=== PATIENT | male | born 1995 | race Caucasian/White ===

== ENCOUNTER 2023-08-24 19:39 | Emergency (ER) | payer OTHER, SELFPAY ==
[2023-08-24 20:05] LABS: % Basophils 0.4 % (0-2); % Eosinophils 1.2 % (0-6); % Immature Granulocytes 0.3 % (0-0.5); % Lymphocytes 15.5 % (20.5-51.1); % Monocytes 10.4 % (1.7-9.3); % Neutrophils 72.2 % (42.2-75.2); Absolute Basophils 0.1 10^3/uL (0-0.2); Absolute Eosinophils 0.1 10^3/uL (0-0.7); Absolute Lymphocytes 1.8 10^3/uL (1.2-3.4); Absolute Monocytes 1.2 10^3/uL (0.1-0.6); Absolute Neutrophils 8.4 10^3/uL (1.4-6.5); Hematocrit 42.6 % (39.0-52.0); Hemoglobin 15.9 g/dL (13.0-18.0); Mean Corp Hgb Conc. 37.3 g/dL (33.0-37.0); Mean Corpuscular Hgb 30.9 pg (27.0-31.0); Mean Corpuscular Volume 82.9 fL (80.0-94.0); Mean Platelet Volume 11.1 fL (7.4-10.4); Nucleated Red Blood Cells % 0 % (-); Platelet Count 200 10^3/uL (130-400); Red Blood Cell Count 5.14 10^6/uL (4.70-6.10); Red Cell Dist. Width 12.7 % (11.5-14.5); White Blood Cell Count 11.7 10^3/uL (4.8-10.8)
[2023-08-24 20:21] LABS: ALT (SGPT) 50 U/L (0-50); AST (SGOT) 36 U/L (17-59); Albumin 4.4 g/dl (3.5-5.0); Alkaline Phosphatase 54 U/L (38-126); Blood Urea Nitrogen 12 mg/dl (9-20); Calcium 10.1 mg/dl (8.4-10.2); Carbon Dioxide 25 mmol/L (22-30); Chloride 94 mmol/L (98-107); Glucose 104 mg/dl (70-99); Potassium 4.1 mmol/L (3.5-5.1); Sodium 130 mmol/L (135-145); Total Bilirubin 0.9 mg/dl (0.2-1.3); Total Protein 7.3 g/dl (6.3-8.2); eGFR > 60.00
--- NOTE | 2023-08-24 21:58 | ED.GENMED ---
History of Present Illness
<Iqra Child PA-C - Last Filed: 08/25/23 00:34>
General
Chief Complaint: Skin Problem
Source: patient
Exam Limitations: none
Time Seen by Provider: 08/24/23 21:36
Nursing documentation reviewed up to this point in time: agreed with
Travel History
Have you had any contact with someone who has COVID-19?: No
Do you have any symptoms of coronavirus? Fever > 100 degrees, chills, cough, shortness of breath, sore throat, loss of taste or smell, muscle aches, or headache?: No
History of Present Illness
History of Present Illness:
This is a 28-year-old male with no past medical history presenting today with an abscess on the right thigh. Patient reports that a few days ago, the beginning the weakness is small pimple on his right leg. He had no pain at the time and thought
nothing of it. As the days progressed, the abscess grew in size and he started to have a lot of pain and difficulty walking due to the pain. He is also states is very painful to touch. Patient denies any fevers or chills, any allergies to
antibiotics. Patient denies nausea or vomiting, possible insect bite. Patient is never had anything like this before.
Past History
<Iqra Child PA-C - Last Filed: 08/25/23 00:34>
Past History
ED Past Medical History: Psychiatric
ED Past Surgical History: None
Social History
Tobacco: Non-smoker
Alcohol: None
Drug: Marijuana, IVDA and Other (Hallucinogenic mushrooms)
Personal: Single
Living: with family
Review of Systems
<Iqra Child PA-C - Last Filed: 08/25/23 00:34>
Review of Systems
All Other Systems: ROS reviewed and negative except as documented in HPI and ROS
Phy Exam
<Iqra Child PA-C - Last Filed: 08/25/23 00:34>
Physical Exam
Physical Exam:
General: Patient is well-appearing in no acute distress. Patient is mildly anxious
Skin: There is a 3 cm abscess with surrounding area of erythema and induration located on the anterior surface of the right thigh.
Course
<Iqra Child PA-C - Last Filed: 08/25/23 00:34>
Orders/Labs/Results
Orders:
Orders
08/24/23 19:58
CBC/With Diff [Complete Blood Count/With Diff] Urgent
CMP [Comprehensive Metabolic Panel] Urgent
08/24/23 23:13
Ibuprofen [Motrin] 600 mg PO NOW STA
Abnormal Lab Results
08/24/23
19:58
WBC 11.7 H 10^3/uL
(4.8-10.8)
MCHC 37.3 H g/dL
(33.0-37.0)
MPV 11.1 H fL
(7.4-10.4)
Absolute Neuts (auto) 8.4 H 10^3/uL
(1.4-6.5)
Absolute Monos (auto) 1.2 H 10^3/uL
(0.1-0.6)
Lymphocytes % 15.5 L %
(20.5-51.1)
Monocytes % 10.4 H %
(1.7-9.3)
Sodium 130 L mmol/L
(135-145)
Chloride 94 L mmol/L
(98-107)
Glucose 104 H mg/dl
(70-99)
08/24/23 19:58
08/24/23 19:58
Vital Signs
Initial and Last Documented VS:
Initial Vital Signs
Temp Pulse Resp Pulse Ox
98.2 F 76 17 98
08/24/23 19:48 08/24/23 19:48 08/24/23 19:48 08/24/23 19:48
Last Documented Vital Signs
Temp Pulse Resp Pulse Ox
98.2 F 76 17 98
08/24/23 19:48 08/24/23 19:48 08/24/23 19:48 08/24/23 19:48
<Adnrew Osborn, DO - Last Filed: 08/24/23 23:20>
Orders/Labs/Results
Orders:
Orders
08/24/23 19:58
CBC/With Diff [Complete Blood Count/With Diff] Urgent
CMP [Comprehensive Metabolic Panel] Urgent
08/24/23 23:13
Ibuprofen [Motrin] 600 mg PO NOW STA
Abnormal Lab Results
08/24/23
19:58
WBC 11.7 H 10^3/uL
(4.8-10.8)
MCHC 37.3 H g/dL
(33.0-37.0)
MPV 11.1 H fL
(7.4-10.4)
Absolute Neuts (auto) 8.4 H 10^3/uL
(1.4-6.5)
Absolute Monos (auto) 1.2 H 10^3/uL
(0.1-0.6)
Lymphocytes % 15.5 L %
(20.5-51.1)
Monocytes % 10.4 H %
(1.7-9.3)
Sodium 130 L mmol/L
(135-145)
Chloride 94 L mmol/L
(98-107)
Glucose 104 H mg/dl
(70-99)
08/24/23 19:58
08/24/23 19:58
Vital Signs
Initial and Last Documented VS:
Initial Vital Signs
Temp Pulse Resp Pulse Ox
98.2 F 76 17 98
08/24/23 19:48 08/24/23 19:48 08/24/23 19:48 08/24/23 19:48
Last Documented Vital Signs
Temp Pulse Resp Pulse Ox
98.2 F 76 17 98
08/24/23 19:48 08/24/23 19:48 08/24/23 19:48 08/24/23 19:48
Procedures
<Iqra Child PA-C - Last Filed: 08/25/23 00:34>
Incision/Drainage/Joint Aspiration
Right Upper Thigh:
Anethesia: 1% Lidocaine with Epi
Preparation: cleaned with Betadine
Type of procedure: incise and drain
Nature of site: abscess
Description of abscess: greater than 3cm
Loculations broken up: Yes
How much fluid was obtained?: scant amount
Fluid description: purulent and serosanguinous
Treatment: left open for drainage
<Iqra Child PA-C - Last Filed: 08/25/23 00:34>
MDM/Problems Addressed
Differential Diagnosis Includes:
Differentials include simple abscess, infected cyst, cellulitis, erysipelas
MDM/Problems Addressed:
Right thigh pain and abscess
Chronic conditions affecting care:
n/a
Acute Exacerbation and/or Progression of Chronic Illness:
n/a
<Iqra Child PA-C - Last Filed: 08/25/23 00:34>
*Pulse Oximetry
Patient hypoxic: no
*Critical Care Note
Total Time (30-74mins, 75-104mins- exclusive of procedures): Not Applicable
Data Reviewed
Review of Other/Old Records Reveals: Records (Patient seen in december 2022 for acute psychosis, reviewed ED physician documentation and discharge summary )
Prescriptions/Medications Considered But Not Given:
n/a
Further Testing Considered But Not Given:
n/a
<Iqra Child PA-C - Last Filed: 08/25/23 00:34>
Patient Management
Escalation/DeEscalation of care consider admission/obs:
This is a 28-year-old male with no pertinent past medical history presenting to emergency department today with a abscess in his right eye. Patient states that the symptoms have been going on for a week. The abscess was incised and drained,
draining scant purulent fluid. Wound was left open for drainage. The wound was dressed, and we sent Bactrim and Keflex to his pharmacy.
ED Attending Note
<Iqra Child PA-C - Last Filed: 08/25/23 00:34>
-
Portions of this chart may have been created with voice recognition software.� Occasional wrong word or��sound alike� substitutions may have occurred due to the inherent limitations of voice recognition software.
<Andrew Osborn DO - Last Filed: 08/24/23 23:20>
ED Attending Note
Patient seen and examined by attending physician: Yes
I performed the substantive portion of visit, reviewed & personally made and approve the management plan that is documented in note by myself or ANTHONY.: Yes
ED Attending Note:
I have seen and evaluated the patient with a [id number] encounter. I have spoken to the advance practicer provider and involved in the medical history, the physical exam, medical decision making.
Evaluation and management service: agree unless noted differently below.
Results interpretation: agree unless noted differently below.
Focused HPI: 28-year-old male presenting with swelling and redness to his right lateral thigh.
Physical exam: Abscess with surrounding cellulitis to right lateral thigh
Medical Decision Making: Patient gave verbal consent for I&D. Given the surrounding cellulitis, will start antibiotics as well
Discharge Plan
Departure
Patient Disposition: Home (Routine Discharge)
Date of Disposition: 08/24/23
Time of Disposition: 23:45
Patient with high blood pressure during this ER visit?: No
Condition: Good
Discharge Problem:
Abscess, Cellulitis and abscess of right leg
Instructions: Abscess Incision and Drainage (DC), Cellulitis (Skin Infection), Adult (DC)
Prescriptions:
New
sulfamethoxazole-trimethoprim [Bactrim DS] 800-160 mg tablet
1 tab PO BID 7 Days Qty: 14 0RF
cephalexin 500 mg capsule
500 mg PO BID 7 Days Qty: 14 0RF
Referrals:
Yessy Lackey MD [Family Provider] -
Activity Restrictions/Additional Instructions:
We have sent two antibiotics to your pharmacy. Please start these tomorrow. The first is called cephalexin: please take one tablet twice daily for 7 days. The second is called bactrim: please take one tablet twice daily for 7 days.
Please take ibuprofen and acetaminophen for pain control.
Please return to the emergency department should you experience fevers or chills, worsening pain, or other concerning symptoms.
Interventions
Interventions:
*Risk Screen - Suicide Last Done: 08/24/23 19:48
*General Assessment Last Done: 08/24/23 19:48
*Neglect/Abuse Screening Last Done: 08/24/23 19:48
*ED COVID-19 Vaccine History Last Done: 08/24/23 19:48
*Nursing Disposition Last Done: 08/25/23 00:14
ED-Skin Assessment Last Done: 08/24/23 23:09
Discharge Date and Time
Discharge Date/Time: 08/25/23 00:15
[2023-08-24] MEDS: MOTRIN 600 MG PO (23:24)
== END 2023-08-25 00:15 | disposition home or self-care (01) ==
LOC: EMR 19:39
PROVIDERS: EMERGENCY PHYSICIAN Student in an Organized Health Care Education/Training Program; FAMILY PHYSICIAN Internal Medicine
DX: L03.115 Cellulitis of right lower limb (principal); L02.415 Cutaneous abscess of right lower limb; R26.2 Difficulty in walking, not elsewhere classified; F31.9 Bipolar disorder, unspecified; F17.210 Nicotine dependence, cigarettes, uncomplicated
CPT/HCPCS: 99283; 10060; 80053; 85025